=== PATIENT | male | born 1955 | race Caucasian/White ===

== ENCOUNTER 2020-05-11 11:44 | Emergency (ER) | payer BC ==
[2020-05-11 12:35] LABS: CHLORIDE,CL 102 mmol/L (98-107); SODIUM,NA 139 mmol/L (136-145)
[2020-05-11 12:36] LABS: ANION GAP 16.7 mmol/L (10-20)
--- NOTE | 2020-05-11 12:56 | CR ---
[id number] RAD/RAD Chest PA or AP 1V EXAM: RAD Chest PA or AP 1V INDICATION: CHEST PAIN. COMPARISON: December 07, 2012. DISCUSSION: Cardiomediastinal silhouette is stable in size and contour. No infiltrate, effusion, pneumothorax, or edema. Low lung volumes associated vascular crowding. IMPRESSION: No acute cardiopulmonary abnormality. Carl Gordon DO 05/11/20 1033 Thank you for allowing us to participate in the care of your patient.
--- NOTE | 2020-05-11 13:35 | EDM.PDOC ---
ED HPI GENERAL MEDICAL PROBLEM - General Chief Complaint: General Stated Complaint: COVID Time Seen by Provider: 05/11/20 13:10 Source of Information: Reports: Patient, RN, RN Notes Reviewed History Limitations: Reports: Other (forgetful the past week) - History of Present Illness INITIAL COMMENTS - FREE TEXT/NARRATIVE: Patient presents to ER with complaint of complications from COVID-19. Patient states he began having symptoms last Monday, was tested on Monday and tested positive. States he has been at home for the past week and a half recuperating. Patient states he feels as though he is in a fog, states he has been very forgetful. States he has just been at home resting, states it has been a series of 15-minute naps for the past week. Patient complains of malaise, myalgias, cough, pressure in the chest with cough. Patient denies shortness of breath, other than with coughing. States he had a fever in the past, no fever today, no chills. Denies nausea/vomiting/diarrhea. Denies increased weakness on one side or the other. States he feels at times he has difficulty finding his words. Onset: Gradual - Related Data Allergies Allergy/AdvReac Type Severity Reaction Status Date / Time No Known Allergies Allergy Verified 05/11/20 14:34 Home Meds: Home Meds . [No Known Home Meds] 05/11/20 [History] ED ROS GENERAL - Review of Systems Review Of Systems: Comprehensive ROS is negative, except as noted in HPI. ED EXAM, GENERAL - Physical Exam Exam: See Below Exam Limited By: No Limitations General Appearance: Alert, WD/WN, Mild Distress Eye Exam: Bilateral Eye: EOMI, Normal Inspection, PERRL (3 brisk) Ears: Normal External Exam, Hearing Grossly Normal Nose: Normal Inspection Throat/Mouth: Normal Inspection, Normal Voice, No Airway Compromise Head: Atraumatic, Normocephalic Neck: Normal Inspection, Supple, Non-Tender, Full Range of Motion Respiratory/Chest: No Respiratory Distress, No Accessory Muscle Use, Chest Non- Tender, Decreased Breath Sounds, Rhonchi (bilaterally]) Cardiovascular: Normal Peripheral Pulses, Regular Rate, Rhythm, No Edema, No Gallop, No JVD, No Murmur, No Rub Peripheral Pulses: 2+: Radial (L), Radial (R) GI/Abdominal: Normal Bowel Sounds, Soft, Non-Tender (Male) Exam: Deferred Rectal (Males) Exam: Deferred Back Exam: Normal Inspection, Full Range of Motion, NT Extremities: Normal Inspection, Normal Range of Motion, Non-Tender, Normal Capillary Refill, No Pedal Edema Neurological: Alert, Oriented, CN II-XII Intact, Normal Cognition, Normal Gait, Normal Reflexes, No Motor/Sensory Deficits, Memory Loss Recent Events Psychiatric: Normal Affect, Normal Mood Skin Exam: Warm, Dry, Intact, Normal Color, No Rash Lymphatic: No Adenopathy Course - Vital Signs Last Recorded V/S: Last Vital Signs Temp 98.4 F 05/11/20 11:50 Pulse 87 05/11/20 11:50 Resp 20 05/11/20 11:50 BP 129/79 05/11/20 11:50 Pulse Ox 94 L 05/11/20 11:50 - Orders/Labs/Meds Orders: Active Orders 24 hr Category Date Time Status EKG Documentation Completion [RC] STAT Care 05/11/20 12:04 Active CULTURE BLOOD [BC] Stat Lab 05/11/20 11:54 Received URINALYSIS W/MICROSCOPIC [UA W/MICROSCOPIC] [URIN] Stat Lab 05/11/20 12:08 Results Lactated Ringers [Ringers, Lactated] 1,000 ml Med 05/11/20 14:57 Active IV ONETIME Medication Orders Lactated Ringer's (Ringers, Lactated) 1,000 mls @ 999 mls/hr IV ONETIME ONE Stop: 05/11/20 15:57 Last Admin: 05/11/20 15:05 Dose: 999 mls/hr Documented by: YANELIS Labs: Laboratory Tests 05/11/20 05/11/20 05/11/20 Range/Units 11:54 11:54 11:54 WBC 3.0 L (4.0-10.0) x10^3/uL RBC 5.10 (4.5-6.0) x10^6/uL Hgb 14.3 (14.0-18.0) g/dL Hct 42.1 (40.0-52.0) % MCV 82.5 (78.0-93.0) fL MCH 28.0 (26.0-32.0) pg MCHC 34.0 (32.0-36.0) g/dL RDW Coeff of Niels 13.1 (10.0-15.0) % Plt Count 122 L (130-400) x10^3/uL Neut % (Auto) 75.3 (50.0-80.0) % Lymph % (Auto) 14.2 L (25.0-50.0) % [place] % (Auto) 10.2 (2.0-11.0) % Eos % (Auto) 0.3 (0.0-4.0) % Baso % (Auto) 0.0 L (0.2-1.2) % PT 10.2 (9.5-12.3) SEC INR 0.9 L (2.0-3.5) D-Dimer, Quantitative (<=0.58) mg/LFEU Sodium 139 (136-145) mmol/L Potassium 3.7 (3.5-5.1) mmol/L Chloride 102 (98-107) mmol/L Carbon Dioxide 24 (21-32) mmol/L Anion Gap 16.7 (10-20) mmol/L BUN 12 (7-18) mg/dL Creatinine 0.9 (0.70-1.30) mg/dL Est Cr Clr Drug Dosing TNP Estimated GFR (MDRD) > 60 Glucose 112 H (74-106) mg/dL Lactic Acid (0.4-2.0) mmol/L Calcium 8.6 (8.5-10.1) mg/dL Corrected Calcium 9.08 (8.5-10.1) mg/dL Total Bilirubin 0.7 (0.2-1.0) mg/dL AST 36 (15-37) U/L ALT 57 (16-63) U/L Alkaline Phosphatase 76 (46-116) U/L Lactate Dehydrogenase 273 H (85-227) U/L Troponin I 0.022 (<=0.056) ng/mL C-Reactive Protein 7.0 H (<=0.9) mg/dL Total Protein 7.1 (6.4-8.2) g/dL Albumin 3.4 (3.4-5.0) g/dL Globulin 3.7 Albumin/Globulin Ratio 0.92 Urine Color (YELLOW) Urine Appearance (CLEAR) Urine pH (5.0-8.0) Ur Specific [place] Urine Protein (NEGATIVE) mg/dL Urine Glucose (UA) (NEGATIVE) mg/dL Urine Ketones (NEGATIVE) mg/dL Urine Occult Blood (NEGATIVE) Urine Nitrite (NEGATIVE) Urine Bilirubin (NEGATIVE) Urine Urobilinogen (0.2) EU/dL Ur Leukocyte Esterase (NEGATIVE) 05/11/20 05/11/20 05/11/20 Range/Units 11:54 11:54 12:08 WBC (4.0-10.0) x10^3/uL RBC (4.5-6.0) x10^6/uL Hgb (14.0-18.0) g/dL Hct (40.0-52.0) % MCV (78.0-93.0) fL MCH (26.0-32.0) pg MCHC (32.0-36.0) g/dL RDW Coeff of Niels (10.0-15.0) % Plt Count (130-400) x10^3/uL Neut % (Auto) (50.0-80.0) % Lymph % (Auto) (25.0-50.0) % [place] % (Auto) (2.0-11.0) % Eos % (Auto) (0.0-4.0) % Baso % (Auto) (0.2-1.2) % PT (9.5-12.3) SEC INR (2.0-3.5) D-Dimer, Quantitative 0.62 H (<=0.58) mg/LFEU Sodium (136-145) mmol/L Potassium (3.5-5.1) mmol/L Chloride (98-107) mmol/L Carbon Dioxide (21-32) mmol/L Anion Gap (10-20) mmol/L BUN (7-18) mg/dL Creatinine (0.70-1.30) mg/dL Est Cr Clr Drug Dosing Estimated GFR (MDRD) Glucose (74-106) mg/dL Lactic Acid 1.1 (0.4-2.0) mmol/L Calcium (8.5-10.1) mg/dL Corrected Calcium (8.5-10.1) mg/dL Total Bilirubin (0.2-1.0) mg/dL AST (15-37) U/L ALT (16-63) U/L Alkaline Phosphatase (46-116) U/L Lactate Dehydrogenase (85-227) U/L Troponin I (<=0.056) ng/mL C-Reactive Protein (<=0.9) mg/dL Total Protein (6.4-8.2) g/dL Albumin (3.4-5.0) g/dL Globulin Albumin/Globulin Ratio Urine Color Dark yellow H (YELLOW) Urine Appearance Clear (CLEAR) Urine pH 6.0 (5.0-8.0) Ur Specific [place] >=1.030 Urine Protein 30 H (NEGATIVE) mg/dL Urine Glucose (UA) Negative (NEGATIVE) mg/dL Urine Ketones 15 H (NEGATIVE) mg/dL Urine Occult Blood Negative (NEGATIVE) Urine Nitrite Negative (NEGATIVE) Urine Bilirubin Moderate H (NEGATIVE) Urine Urobilinogen 1.0 (0.2) EU/dL Ur Leukocyte Esterase Negative (NEGATIVE) Meds: Medications Generic Name Dose Route Start Last Admin Trade Name Freq PRN Reason Stop Dose Admin Lactated Ringer's 1,000 mls @ 999 mls/hr 05/11/20 14:57 05/11/20 15:05 Ringers, Lactated IV 05/11/20 15:57 999 mls/hr ONETIME ONE Administration Discontinued Medications Generic Name Dose Route Start Last Admin Trade Name Freq PRN Reason Stop Dose Admin Iopamidol 100 ml 05/11/20 14:00 Isovue-300 (61%) IVPUSH 05/11/20 14:01 ONETIME ONE Iopamidol 100 ml 05/11/20 14:31 05/11/20 14:49 Isovue-300 (61%) IVPUSH 05/11/20 14:32 100 ml ONETIME ONE Administration - Radiology Interpretation Free Text/Narrative:: Chest xray: No acute cardiopulmonary abnormality Head CT wo contrast: No acute intracranial findings Chest CT with contrast: Bilateral infiltrates are seen No pulmonary emboli are identified There is no mediastinal mass or adenopathy See rad report Departure - Departure Time of Disposition: 16:00 Disposition: Home, Self-Care 01 Condition: Fair Clinical Impression: COVID-19 - Discharge Information *PRESCRIPTION DRUG MONITORING PROGRAM REVIEWED*: No *COPY OF PRESCRIPTION DRUG MONITORING REPORT IN PATIENT CINDY: No Referrals: Brandie Grayson PA-C [Primary Care Provider] - Forms: ED Department Discharge Additional Instructions: RX: Azithromycin, Prednisone, Albuterol inhaler Drink plenty of fluids Return to the ER with any worsening of symptoms Follow up with your primary care facility in 1-2 weeks Rest Sepsis Event Note (ED) - Evaluation Sepsis Screening Result: No Definite Risk - Focused Exam Vital Signs: Vital Signs Temp Pulse Resp BP Pulse Ox 05/11/20 11:50 98.4 F 87 20 129/79 94 L - My Orders Last 24 Hours: My Active Orders 05/11/20 11:54 CULTURE BLOOD [BC] Stat 05/11/20 12:04 EKG Documentation Completion [RC] STAT 05/11/20 12:08 URINALYSIS W/MICROSCOPIC [UA W/MICROSCOPIC] [URIN] Stat 05/11/20 14:57 Lactated Ringers [Ringers, Lactated] 1,000 ml IV ONETIME - Assessment/Plan Last 24 Hours: My Active Orders 05/11/20 11:54 CULTURE BLOOD [BC] Stat 05/11/20 12:04 EKG Documentation Completion [RC] STAT 05/11/20 12:08 URINALYSIS W/MICROSCOPIC [UA W/MICROSCOPIC] [URIN] Stat 05/11/20 14:57 Lactated Ringers [Ringers, Lactated] 1,000 ml IV ONETIME
[2020-05-11] MEDS ORDERED: Iopamidol 612 MG/ML 100 ML Bottle IVPUSH ONE ×2 (14:00→14:31)
--- NOTE | 2020-05-11 14:52 | CT ---
[id number] CT/CTA Chest Exam: CTA Chest Clinical Data: SUSPECTED PULMONARY EMBOLUS COMPARISON: NO PREVIOUS SIMILAR EXAM IS AVAILABLE FINDINGS: Bilateral infiltrates are seen. No pulmonary emboli are identified There is no mediastinal mass or adenopathy IMPRESSION: BILATERAL PNEUMONIA NO PULMONARY EMBOLI Keith Hermosillo MD 05/11/20 [id number] Thank you for allowing us to participate in the care of your patient.
--- NOTE | 2020-05-11 14:54 | CT ---
[id number] CT/CT Head WO IV EXAM: NONCONTRAST HEAD CT INDICATION: COVID POSITIVE, FORGETFULNESS. COMPARISON: None. DISCUSSION: The ventricles and sulci are normal in size and configuration. The zhang and white matter are normal in attenuation. No mass effect or midline shift. No acute hemorrhage or extra-axial fluid collection. No acute territorial infarct is identified. Small volume fluid and frothy secretions in the left maxillary sinus compatible with acute sinusitis. IMPRESSION: 1. No acute intracranial findings. Gilmar Lewis MD 05/11/20 0724 Thank you for allowing us to participate in the care of your patient.
[2020-05-11] MEDS ORDERED: Lactated Ringers 1,000 ML IV ONE (14:57)
== END 2020-05-11 16:30 | disposition home or self-care (01) ==
LOC: VM.ED 11:44
DX: U07.1 COVID-19 (principal)
CPT/HCPCS: 70450; 71045; 71275; 80053; 81001; 83605; 83615; 84484; 85025; 85379; 85610; 86140; 87040; 93005; 99284; 99285-25; J7120; Q9967

== ENCOUNTER 2022-03-25 16:06 | Emergency (ER) | payer BC ==
[2022-03-25] MEDS ORDERED: Sodium Chloride 0.9% 10 ML Syringe FLUSH PRN (16:27)
[2022-03-25 16:47] LABS: PTT,PARTIAL THROMBOPLSTIN TIME 30.3 SEC (20.5-30.9)
[2022-03-25 16:59] LABS: CHLORIDE,CL 107 mmol/L (98-107); SODIUM,NA 143 mmol/L (136-145)
[2022-03-25 17:03] LABS: ANION GAP 11.9 mmol/L (5-15); ESTIMATED GFR 84 mL/min (>=60)
[2022-03-25] MEDS: Lisinopril 10 MG Tab PO ONE (17:33)
== END 2022-03-25 17:34 | disposition home or self-care (01) ==
LOC: VM.ED 16:06
DX: R00.2 Palpitations (principal); I10 Essential (primary) hypertension
CPT/HCPCS: 36415; 80053; 83735; 84100; 84443; 84484; 85025; 85610; 85730; 93005; 93010; 99284; 99285; A9270-GY

== ENCOUNTER 2022-06-29 07:04 | Emergency (ER) | payer BC ==
[2022-06-29 07:53] LABS: CHLORIDE,CL 106 mmol/L (98-107); SODIUM,NA 141 mmol/L (136-145)
[2022-06-29 07:56] LABS: ESTIMATED GFR 68 mL/min (>=60)
== END 2022-06-29 08:45 | disposition home or self-care (01) ==
LOC: VM.ED 07:04
DX: I48.92 Unspecified atrial flutter (principal); I10 Essential (primary) hypertension; Z79.899 Other long term (current) drug therapy
CPT/HCPCS: 36415; 71046; 80053; 82550; 83615; 84484; 85025; 86140; 93005; 93010; 99285

== ENCOUNTER 2023-07-20 08:52 | Day surgery (SDC) | payer BC, MEDICARE ==
[2023-07-20] MEDS: Lactated Ringers 1,000 ML IV SCH (09:16)
[2023-07-20] MEDS ORDERED: fentaNYL 100 MCG/2 ML SDV ONE (11:57)
[2023-07-20] MEDS ORDERED: Propofol 200 MG/20 ML SDV ONE ×2 (11:57→12:21)
[2023-08-17] MEDS ORDERED: Lactated Ringers 1,000 ML IV SCH (07:00)
== END 2023-07-20 14:04 | disposition home or self-care (01) ==
LOC: VM.SDS 08:52
PROVIDERS: ATTEND Family Medicine
DX: K57.30 Diverticulosis of large intestine without perforation or abscess without bleeding (principal); K64.9 Unspecified hemorrhoids; I10 Essential (primary) hypertension; I47.10 Supraventricular tachycardia, unspecified; E66.01 Morbid (severe) obesity due to excess calories; Z68.41 Body mass index [BMI] 40.0-44.9, adult; Z86.16 Personal history of COVID-19; Z79.899 Other long term (current) drug therapy
CPT/HCPCS: J2704; J3010; J7120

== ENCOUNTER 2024-03-04 17:29 | Emergency (ER) | payer MEDICARE ==
[2024-03-04] MEDS: Lidocaine 1% 10 ML MDV INJECT ONE (17:50)
== END 2024-03-04 18:20 | disposition home or self-care (01) ==
LOC: VM.ED 17:29
DX: S61.214A Laceration without foreign body of right ring finger without damage to nail, initial encounter (principal); I10 Essential (primary) hypertension; E66.9 Obesity, unspecified; Z68.41 Body mass index [BMI] 40.0-44.9, adult; Z79.899 Other long term (current) drug therapy; W26.8XXA Contact with other sharp object(s), not elsewhere classified, initial encounter
CPT/HCPCS: 12002; 99282; 99283; J3490